=== PATIENT | male | born 1955 | race Caucasian/White ===

== ENCOUNTER 2025-07-25 15:12 | Outpatient (CLI) | payer MEDICARE, SELFPAY ==
--- NOTE | 2025-07-25 15:30 | MR_ITS ---
[address] [address] Phone:?[phone] Fax:?[phone] Referring Physician Information: Gregorio Blue [address] [facility] [address] Phone:?[phone] Fax:?[phone] Patient:Margarita Gentile D.O.B:?1955 Sex:?Male Phone:?[phone] [facility] MRN:?[id number] Exam Date:?07/25/2025 EXAM: MRI of the RIGHT SHOULDER without contrast CLINICAL: Right shoulder pain. Evaluate rotator cuff. COMPARISONS: X-rays 07/14/2025. TECHNICAL: Multiplanar multisequence MRI of the right shoulder was obtained. SEDATION: None. CONTRAST: None. FINDINGS: Rotator cuff: Supraspinatus/Infraspinatus: There is mild tendinosis of the distal supraspinatus and infraspinatus tendons without evidence of significant tendon tear. There is a small 5 mm low signal calcification along the junction of the posterior distal supraspinatus tendon and anterior distal infraspinatus tendon on coronal series 7 image 15. No significant fatty atrophy of the muscles. Teres minor: There is advanced fatty atrophy of the proximal muscle. No significant tendinosis or tendon tear. Subscapularis: No tendinosis, tear or atrophy. Bursae: Subacromial-subdeltoid: Mild edema involving the bursa. Subcoracoid: No significant bursal fluid. Coracoacromial arch: Acromion morphology: Type II. No os acromiale. Acromiohumeral space: Within normal limits. Coracohumeral space: Within normal limits. Biceps tendon, long head: No tendinosis, tendon tear or displacement. Glenohumeral joint: No significant joint effusion. Articular cartilage: No significant chondral loss. Capsule: No evidence of capsular thickening or injury. Labrum: Ill-defined degenerative fraying/tearing is seen to involve the superior labrum as well as the anterior and anteroinferior labrum. Small region of loculated joint fluid or perilabral cyst noted along the anteroinferior labrum measuring approximately 16 mm in craniocaudal dimension as seen on sagittal series 9 image 15. Bones: There is increased bone marrow edema involving the greater tuberosity of the proximal humerus. No discrete fracture identified. Acromioclavicular joint: Mild changes of arthrosis. No AC joint injury/widening. IMPRESSION: 1. 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 2. Bone marrow edema involving the greater tuberosity of the proximal humerus adjacent to the distal rotator cuff tendon attachments may be reactive versus contusion. No evidence of fracture. 3. Ill-defined degenerative fraying/tearing involving the superior labrum as well as the anterior and anteroinferior labrum. Small region of loculated joint fluid or perilabral cyst along the anteroinferior labrum. 4. Mild AC joint arthrosis. JCZ Electronically signed on 07/28/2025 10:56:00 AM by Jc Keita D.O.
== END 2025-07-25 15:13 | disposition home or self-care (01) ==
LOC: MRI 15:12
PROVIDERS: Visit Provider Physician Assistant
DX: M25.511 Pain in right shoulder (principal); M75.101 Unspecified rotator cuff tear or rupture of right shoulder, not specified as traumatic; S43.431A Superior glenoid labrum lesion of right shoulder, initial encounter; M19.011 Primary osteoarthritis, right shoulder
CPT/HCPCS: 73221